=== PATIENT | male | born 1960 | race African-American/Black ===

== ENCOUNTER 2018-04-04 10:58 | Emergency (ER) | payer OTHER, MEDICAID ==
[~2018-04-04] VITALS: Ht 175.3 cm; Wt 90.0 kg
[~2018-04-04 10:58] MED LIST: ASPI-1159 PO; DILT60TA41 PO
[2018-04-04 11:46] LABS: BASOPHILS % 0.6 % (0.0-2.0); EOSINOPHILS % 3.2 % (0.0-5.0); HEMATOCRIT. 42.7 % (42.0-52.0); HEMOGLOBIN. 14.3 g/dL (14.0-18.0); LYMPHOCYTES % 38.4 % (20.0-50.0); MEAN CORPUSCULAR HEMOGLOBIN 29.3 pg (28.0-32.0); MEAN CORPUSCULAR VOLUME 87.6 fL (80.0-94.0); MEAN PLATELET VOLUME 9.1 fl (7.4-10.4); MONOCYTES % 7.9 % (2.0-8.0); NEUTROPHILS % 49.9 % (40.0-76.0); PLATELET 185 x1000/uL (130-400); RED BLOOD CELL COUNT 4.87 mill/uL (4.7-6.1); RED CELL DISTRIBUTION WIDTH 13.9 % (11.6-14.6)
[2018-04-04 11:52] LABS: CHLORIDE 107 mEq/L (98-107)
[2018-04-04] MEDS ORDERED: DILTIAZEM HCL 60MG TABLET PO ONE (12:00)
[2018-04-04] MEDS ORDERED: DILTIAZEM HCL 5MG/ML 5ML VIAL IV ONE (12:00)
[2018-04-04 12:53] VITALS: BP 127/80
== END 2018-04-04 13:13 | disposition home or self-care (01) ==
LOC: ER 11:22
DX: I48.91 Unspecified atrial fibrillation (principal); R00.0 Tachycardia, unspecified; Z79.01 Long term (current) use of anticoagulants
CPT/HCPCS: 36415; 71045; 80053; 83880; 84484; 85025; 93005; 99284; J3490